=== PATIENT | female | born 1950 ===

== ENCOUNTER → 2025-02-24 09:04 | Outpatient (BNVA) | payer MEDICARE, SELFPAY | PROVIDERS: Visit Provider Nurse Practitioner Family | DX: L29.9 Pruritus, unspecified (principal); D69.2 Other nonthrombocytopenic purpura; L71.8 Other rosacea; B35.1 Tinea unguium; D22.39 Melanocytic nevi of other parts of face; L82.1 Other seborrheic keratosis; D48.5 Neoplasm of uncertain behavior of skin | CPT/HCPCS: 11104; 99204 ==

== ENCOUNTER → 2025-03-31 13:28 | Outpatient (BNVA) | payer MEDICARE, SELFPAY | PROVIDERS: Visit Provider Nurse Practitioner Family | DX: D22.5 Melanocytic nevi of trunk (principal); F42.4 Excoriation (skin-picking) disorder | CPT/HCPCS: 99213 ==

== ENCOUNTER → 2025-04-07 11:16 | Outpatient (BNVA) | payer MEDICARE, SELFPAY | PROVIDERS: Visit Provider Dermatology | DX: D22.72 Melanocytic nevi of left lower limb, including hip (principal); F42.4 Excoriation (skin-picking) disorder; L29.89 Other pruritus; D22.5 Melanocytic nevi of trunk | CPT/HCPCS: 11602; 13101; 99213 ==